=== PATIENT | female | born 1960 | race Caucasian/White ===

== ENCOUNTER 2016-06-09 04:16 | Emergency (ER) | payer OTHER ==
--- NOTE | 2016-06-09 04:22 | EDPHY ---
H & P Stated Complaint: cough/dyspnea HPI/ROS: HPI CHIEF COMPLAINT: Cough, wheezing HISTORY OF PRESENT ILLNESS: This patient very pleasant 55-year-old female, denies any significant medical history, presents to the emergency room with worsening cough since Wednesday. She has had persistent cough since Wednesday, nonproductive. She tells me that the cough is progressively got worse she started having wheezing. She was unable to sleep last night with worsening cough and shortness of breath. Audible wheezing. She may have a history of asthma she is exactly unsure. She denies chest pain, fever. She has had chills. She denies vomiting. She does tell me that she has had a sore throat, sinus congestion and sinus pressure. Past Medical History: Denies significant medical history possible history of asthma Past Surgical History: hysterectomy remote Social History: Denies use of drugs alcohol tobacco products Family History: Noncontributory ROS REVIEW OF SYSTEMS: A comprehensive 10 point review of systems is otherwise negative aside from elements mentioned in the history of present illness. Exam Constitutional nontoxic, triage nursing summary reviewed, vital signs reviewed , awake/alert. Eyes normal conjunctivae and sclera, EOMI, PERRLA. HENT normal inspection, atraumatic, moist mucus membranes, no epistaxis, neck supple/ no meningismus, no raccoon eyes. Respiratory tachypnea present, audible wheezing present, bronchitic sounding cough, decreased breath sounds bilaterally Cardiovascular rate normal, regular rhythm, no murmur, no edema, distal pulses normal. Gastrointestinal soft, non-tender, no rebound, no guarding, normal bowel sounds, no distension, no pulsatile mass. Genitourinary no CVA tenderness. Musculoskeletal no midline vertebral tenderness, full range of motion, no calf swelling, no tenderness of extremities, no meningismus, good pulses, neurovascularly intact. Skin pink, warm, & dry, no rash, skin atraumatic. Neurologic awake, alert and oriented x 3, AAOx3, moves all 4 extremities equally, motor intact, sensory intact, CN II-XII intact, normal cerebellar, normal vision, normal speech. Psychiatric normal mood/affect. Heme/Lymph/Immune no lymphadenopathy. Differential Diagnosis: Includes but is not limited to in a particular order, upper respiratory tract infection, pneumonia, reactive airway disease, asthma, bronchitis, influenza, pneumothorax Medical Decision Making:This patient had an IV established receive IV fluid bolus, IV Solu-Medrol, obtain blood work, she will have a chest x-ray, she received DuoNeb breathing treatment. We will test for influenza. Re-evaluation: 06: RE-EXAMINATION AT THIS TIME THIS PATIENT IS RESTING COMFORTABLY SHE FEELS MUCH BETTER. CLEAR LUNG SOUNDS. NO HYPOXIA. NO RESPIRATORY DISTRESS. SHE IS AGREEABLE GOING HOME. I WILL PRESCRIBE ALBUTEROL INHALER, GUAIFENESIN, ALBUTEROL NEBS, AZITHROMYCIN. SHE DOES UNDERSTAND RETURN EMERGENCY ROOM IF SHE DEVELOPS ANY WORSENING SYMPTOMS QUESTIONS OR CONCERNS INCLUDES WORSENING SHORTNESS OF BREATH, WHEEZING, HIGH FEVER, VOMITING. ED X-RAY chest one view: there is peribronchial thickening present, no focal pneumonia. This patient's blood work has been reviewed, no high leukocytosis, no influenza. She feels comfortable on discharge. She ambulated well throughout the emergency room today difficulty. No shortness of breath. She does not have an oxygen requirement. Source: Patient - Personal History LMP (Females 10-55): Post Menopausal Current Tetanus/Diphtheria Vaccine: Unsure - Medical/Surgical History Hx Asthma: No Hx Chronic Respiratory Disease: No Hx Diabetes: No Hx Cardiac Disease: No Hx Renal Disease: No Hx Cirrhosis: No Hx Alcoholism: No Hx HIV/AIDS: No Hx Splenectomy or Spleen Trauma: No Other PMH: L ANKLE SURG/L KNEE SURG/R KNEE SURG/APPY - Social History Smoking Status: Never smoked Constitutional: Initial Vital Signs Temperature (C) 36.7 C 06/09/16 04:17 Heart Rate 86 06/09/16 04:17 Respiratory Rate 19 06/09/16 04:17 Blood Pressure 148/88 H 06/09/16 04:17 O2 Sat (%) 94 06/09/16 04:17 O2 Delivery Mode Room Air O2 (L/minute) 3 Allergies/Adverse Reactions: morphine Allergy (Verified 04/15/15 14:46) tolmetin sodium [From Tolectin] Allergy (Verified 04/15/15 14:46) Home Medications: Medication Instructions Recorded AZITHROMYCIN [Z-PACK] 250 mg PO DAILY #6 tab 06/09/16 Albuterol Sulfate [ALBUTEROL 0.63 mg IH QID #20 vial.neb 06/09/16 SULFATE] Albuterol [Proventil Inhaler HFA 1 - 2 puffs IH Q4H #1 mdi 06/09/16 (*)] Guaifenesin [Guaifenesin ER] 600 mg PO BID #14 tab.er.12h 06/09/16 predniSONE 60 mg PO DAILY #15 tab 06/09/16 Medical Decision Making - Data Points Laboratory Results: Laboratory Results 06/09/16 04:50 06/09/16 04:50 06/09/16 06/09/16 05:00 04:50 WBC 5.12 10^3/uL (3.80-9.50) RBC 5.28 10^6/uL (4.18-5.33) Hgb 15.3 g/dL (12.6-16.3) Hct 46.5 % (38.0-47.0) MCV 88.1 fL (81.5-99.8) MCH 29.0 pg (27.9-34.1) MCHC 32.9 g/dL (32.4-36.7) RDW 13.3 % (11.5-15.2) Plt Count 282 10^3/uL (150-400) MPV 9.0 fL (8.7-11.7) Neut % (Auto) 52.5 % (39.3-74.2) Lymph % (Auto) 30.5 % (15.0-45.0) Craven % (Auto) 11.3 % (4.5-13.0) Eos % (Auto) 4.9 % (0.6-7.6) Baso % (Auto) 0.6 % (0.3-1.7) Nucleat RBC Rel Count 0.0 % (0.0-0.2) Absolute Neuts (auto) 2.69 10^3/uL (1.70-6.50) Absolute Lymphs (auto) 1.56 10^3/uL (1.00-3.00) Absolute Monos (auto) 0.58 10^3/uL (0.30-0.80) Absolute Eos (auto) 0.25 10^3/uL (0.03-0.40) Absolute Basos (auto) 0.03 10^3/uL (0.02-0.10) Absolute Nucleated RBC 0.00 10^3/uL (0-0.01) Immature Gran % 0.2 % (0.0-1.1) Immature Gran # 0.01 10^3/uL (0.00-0.10) Sodium 142 mEq/L (134-144) Potassium 4.5 mEq/L (3.5-5.2) Chloride 108 mEq/L (97-110) Carbon Dioxide 21 L mEq/l (22-31) Anion Gap 13 mEq/L (8-16) BUN 13 mg/dL (7-23) Creatinine 1.0 mg/dL (0.6-1.0) Estimated GFR 58 Glucose 100 mg/dL (70-100) Calcium 9.4 mg/dL (8.5-10.4) Influenza Typ A,B (DFA) NEGATIVE FOR FLU (NEGATIVE) Medications Given: Discontinued Medications Albuterol/Ipratropium (Duoneb) 3 ml IH EDNOW ONE Stop: 06/09/16 04:40 Last Admin: 06/09/16 04:43 Dose: 3 ml Albuterol/Ipratropium (Duoneb) 3 ml IH EDNOW ONE Stop: 06/09/16 04:47 Last Admin: 06/09/16 04:52 Dose: 3 ml Sodium Chloride (Ns) 1,000 mls @ 0 mls/hr IV ONCE ONE PRN Reason: As Directed Stop: 06/09/16 04:47 Last Admin: 06/09/16 05:00 Dose: 1,000 mls Magnesium Sulfate (Magnesium Sulf 2 Gm (Premix)) 50 mls @ 50 mls/hr IV EDNOW ONE Stop: 06/09/16 05:45 Last Admin: 06/09/16 05:00 Dose: 50 mls Methylprednisolone Sodium Succinate (Solu-Medrol) 125 mg IVP EDNOW ONE Stop: 06/09/16 04:47 Last Admin: 06/09/16 05:04 Dose: 125 mg Departure - Departure Disposition: Home, Routine, Self-Care Clinical Impression: Bronchitis Condition: Good Instructions: Acute Bronchitis (ED) Additional Instructions: 1. Stay well-hydrated drink lots of fluids. 2. return to the emergency room if develops any worsening symptoms includes worsening shortness of breath, wheezing, cough congestion. Referrals: Melissa Car MD [Primary Care Provider] - As per Instructions Prescriptions: Albuterol Sulfate [ALBUTEROL SULFATE] 0.63 mg IH QID #20 vial.neb Guaifenesin [Guaifenesin ER] 600 mg PO BID #14 tab.er.12h Albuterol [Proventil Inhaler HFA (*)] 1 - 2 puffs IH Q4H #1 mdi AZITHROMYCIN [Z-PACK] 250 mg PO DAILY #6 tab predniSONE 60 mg PO DAILY #15 tab
[2016-06-09] MEDS ORDERED: IPRATROPIUM/ALBUTEROL 3 ML DEYVIAL ONE ×2 (04:26→04:40)
[2016-06-09] MEDS ORDERED: IPRATROPIUM/ALBUTEROL 3 ML DEYVIAL IH ONE ×2 (04:39→04:46)
[2016-06-09] MEDS ORDERED: MAGNESIUM SULF 2 GM/WATER 50 ML IV ONE (04:46)
[2016-06-09] MEDS ORDERED: NS 1,000 ML IV ONE (04:46)
[2016-06-09] MEDS ORDERED: methylPREDNISolone SOD SUCC 125 MG/2 ML VIAL IVP ONE (04:46)
[2016-06-09 04:59] LABS: % IMMATURE GRANULYOCYTES 0.2 % (0.0-1.1); ABSOLUTE IMMATURE GRANULOCYTES 0.01 10^3/uL (0.00-0.10); ADD DIFF? NO; ADD MORPH? NO; ADD SCAN? NO; ATYPICAL LYMPHOCYTE FLAG 10 (0-99); FRAGMENT RBC FLAG 0 (0-99); HEMATOCRIT 46.5 % (38.0-47.0); HEMOGLOBIN 15.3 g/dL (12.6-16.3); LEFT SHIFT FLG 0 (0-99); LIPEMIA HEMOLYSIS FLAG 80 (0-99); MEAN CELL HEMOGLOBIN CONCENTR. 32.9 g/dL (32.4-36.7); MEAN CELL VOLUME 88.1 fL (81.5-99.8); PLATELET CLUMPS FLAG 0 (0-99); PLATELET COUNT 282 10^3/uL (150-400); RED BLOOD CELL COUNT 5.28 10^6/uL (4.18-5.33); RED CELL DISTRIBUTION WIDTH 13.3 % (11.5-15.2)
[2016-06-09 05:19] LABS: ANION GAP 13 mEq/L (8-16); CALCIUM 9.4 mg/dL (8.5-10.4); CARBON DIOXIDE 21 mEq/l (22-31); CHLORIDE 108 mEq/L (97-110); GLOMERULAR FILTRATION RATE 58; GLUCOSE 100 mg/dL (70-100); POTASSIUM 4.5 mEq/L (3.5-5.2); SODIUM 142 mEq/L (134-144)
[2016-06-09 06:26] VITALS: BP 114/73; PULSE 69; RESP 18; TEMP 97.7; O2SAT 93
--- NOTE | 2016-06-09 08:34 | DX ---
Portable Chest, 452 a.m. History: Dyspnea Comparison: None Findings: Inspiration is less than optimal. Lungs clear. Heart normal. No pleural effusion or pneumot horax. Impression: Negative.
== END 2016-06-09 06:25 | disposition home or self-care (01) ==
DX: J20.9 Acute bronchitis, unspecified (principal)
CPT/HCPCS: 96365